=== PATIENT | male | born 2000 | race African-American/Black ===

== ENCOUNTER 2019-05-25 18:04 | Emergency (ER) | payer SELFPAY ==
[~2019-05-25] VITALS: Ht 170.2 cm; Wt 55.8 kg
[2019-05-25] MEDS ORDERED: KETOROLAC 60 MG/2 ML VIAL. IM ONE (18:45)
--- NOTE | 2019-05-25 19:06 | PHYS DOC ---
Past Medical History Past Medical History: No Pertinent History (ERENDIRA MANNING APRN) Past Surgical History: Other Additional Past Surgical Histo: Adenoids (ERENDIRA MANNING APRN) Alcohol Use: Occasionally Drug Use: Marijuana (ERENDIRA MANNING APRN) Smoking: Cigarettes (ERENDIRA BIANCHI DO) Adult General Chief Complaint Chief Complaint: OTHER COMPLAINTS HPI HPI Patient is a 19 year old male that presents stating that yesterday he woke up and is a midsternal chest pain when he takes a deep breath. He states this pain has continued and decided come to the ER. He rates his pain as 5 out of 10 in severity and states it sharp. He has not tried any interventions prior to arrival. (ERENDIRA MANNING APRN) Review of Systems Review of Systems Constitutional: Denies fever or chills [] Eyes: Denies change in visual acuity, redness, or eye pain [] HENT: Denies nasal congestion or sore throat [] Respiratory: Denies cough or shortness of breath [] Cardiovascular: No additional information not addressed in HPI [] GI: Denies abdominal pain, nausea, vomiting, bloody stools or diarrhea [] : Denies dysuria or hematuria [] Musculoskeletal: Denies back pain or joint pain [] Integument: Denies rash or skin lesions [] Neurologic: Denies headache, focal weakness or sensory changes [] Endocrine: Denies polyuria or polydipsia [] Complete systems were reviewed and found to be within normal limits, except as documented in this note. (ERENDIRA MANNING APRN) Current Medications Current Medications Current Medications Medications (Trade) Dose Ordered Sig/Mani Start Time Stop Time Status Last Admin Dose Admin Ketorolac Tromethamine (Toradol Im) 30 mg 1X ONCE 05/25/19 18:45 05/25/19 18:46 DC 05/25/19 18:48 30 MG (ERENDIRA BIANCHI DO) Allergies Allergies Allergies Coded Allergies Type Severity Reaction Last Updated Verified No Known Drug Allergies 06/29/14 No (ERENDIRA BIANCHI DO) Physical Exam Physical Exam Constitutional: Well developed, well nourished, no acute distress, non-toxic appearance. [] HENT: Normocephalic, atraumatic, bilateral external ears normal, oropharynx moist, no oral exudates, nose normal. [] Eyes: PERRLA, EOMI, conjunctiva normal, no discharge. [] Neck: Normal range of motion, no tenderness, supple, no stridor. [] Cardiovascular:Heart rate regular rhythm, no murmur [] Lungs & Thorax: Bilateral breath sounds clear to auscultation [] Abdomen: Bowel sounds normal, soft, no tenderness, no masses, no pulsatile masses. [] Skin: Warm, dry, no erythema, no rash. [] Back: No tenderness, no CVA tenderness. [] Extremities: No tenderness, no cyanosis, no clubbing, ROM intact, no edema. [] Neurologic: Alert and oriented X 3, normal motor function, normal sensory function, no focal deficits noted. [] Psychologic: Affect normal, judgement normal, mood normal. [] (ERENDIRA MANNING APRN) Current Patient Data Vital Signs Vital Signs Date Time Temp Pulse Resp B/P (MAP) Pulse Ox O2 Delivery O2 Flow Rate FiO2 05/25/19 19:49 98.2 70 16 130/91 (104) 99 Room Air 98.2 (ERENDIRA BIANCHI DO) EKG EKG [] (ERENDIRA MANNING APRN) Radiology/Procedures Radiology/Procedures Chest x-ray interpreted by Dr. Bianchi No obvious acute changes.[] [facility] [address] [place] [address] IMAGING REPORT Signed PATIENT: RADHA LUIS ACCOUNT: [id number] : 2000 LOCATION: ER AGE: 19 SEX: M EXAM STATUS: REG ER ORD. PHYSICIAN: ERENDIRA MANNING APRN REASON: chest pain PROCEDURE: CHEST PA & LATERAL Exam: Chest 2 views INDICATION: Chest pain TECHNIQUE: Frontal and lateral views of the chest Comparisons: June 29, 2014 FINDINGS: The cardiomediastinal silhouette and pulmonary vessels are within normal limits. The lung and pleural spaces are clear. IMPRESSION: No acute cardiopulmonary process. Electronically signed by: Reagan Garcia MD (05/25/2019 7:22 PM) [facility] DICTATED and SIGNED BY: REAGAN GARCIA MD DATE: 05/25/191921 (ERENDIRA MANNING APRN) Course & Med Decision Making Course & Med Decision Making Pertinent Labs and Imaging studies reviewed. (See chart for details) Will get x-ray and give Toradol. Imaging is negative for acute changes. Will d/c home. (ERENDIRA MANNING APRN) Dragon Disclaimer Dragon Disclaimer This electronic medical record was generated, in whole or in part, using a voice recognition dictation system. (ERENDIRA MANNING APRN) Departure Departure Impression: Primary Impression: Chest pain Disposition: HOME, SELF-CARE Condition: STABLE Referrals: NO PCP (PCP) Patient Instructions: Chest Pain (Nonspecific), Chest Wall Pain Additional Instructions: Thank you for visiting [facility]. We appreciate you trusting us with your care. If any additional problems come up don't hesitate to return to visit us. Please follow up with your primary care provider so they can plan additional care if needed and know about the problem that you had. If symptoms worsen come back to the Emergency Department. Any concerning symptoms that start such as chest pain, shortness of air, weakness or numbness on one side of the body, running high fevers or any other concerning symptoms return to the ER. The HEART Score for CP Pts HEART Score for Chest Pain: HEART Score for Chest Pain Response (Comments) Value History Slighlty/Non-Suspicious 0 ECG Normal 0 Age < 45 0 Risk Factors 1 or 2 Risk Factors 1 Total 1 Risk Factors: Risk Factors: DM, Current or recent (<one month) smoker, HTN, HLP, family history of CAD, obesity. Risk Scores: Score 0 - 3: 2.5% MACE over next 6 weeks - Discharge Home Score 4 - 6: 20.3% MACE over next 6 weeks - Admit for Clinical Observation Score 7 - 10: 72.7% MACE over next 6 weeks - Early Invasive Strategies (ERENDIRA BIANCHI DO) Attending Signature Attending Signature I have reviewed the PA/PLAYBACK OPERATOR's note and plan of care. I was available for consultation as needed during the patient's visit in the emergency department. I agree with the clinical impression, plan, and disposition. (ERENDIRA BIANCHI DO) Problem Qualifiers Primary Impression: Chest pain Chest pain type: chest pain on breathing Qualified Codes: R07.1 - Chest pain on breathing ERENDIRA MANNING APRN May 25, 2019 19:06 ERENDIRA BIANCHI DO May 27, 2019 01:56
--- NOTE | 2019-05-25 19:25 | RAD ---
Exam: Chest 2 views INDICATION: Chest pain TECHNIQUE: Frontal and lateral views of the chest Comparisons: June 29, 2014 FINDINGS: The cardiomediastinal silhouette and pulmonary vessels are within normal limits. The lung and pleural spaces are clear. IMPRESSION: No acute cardiopulmonary process. Electronically signed by: Reagan Flowers MD (05/25/2019 7:22 PM) [facility]
[2019-05-25 19:49] VITALS: BP 130/91
== END 2019-05-25 19:45 | disposition home or self-care (01) ==
LOC: ER 18:04
DX: R07.1 Chest pain on breathing (principal); F17.210 Nicotine dependence, cigarettes, uncomplicated
CPT/HCPCS: 71046; 96372; 99284; J1885

== ENCOUNTER 2019-11-14 23:11 | Emergency (ER) | payer SELFPAY ==
[~2019-11-14] VITALS: Ht 177.8 cm; Wt 58.0 kg
--- NOTE | 2019-11-14 23:30 | PHYS DOC ---
Past Medical History Past Medical History: No Pertinent History (ZAK SHAH APRN) Past Surgical History: Other Additional Past Surgical Histo: Adenoids (ZAK SHAH APRN) Alcohol Use: Occasionally Drug Use: Marijuana (ZAK SHAH APRN) Adult General Chief Complaint Chief Complaint: SUICDAL IDEATION HPI HPI Patient is a 19 year old Male who presents with attempted to kill himself by breaking a [place] [employer] Beer Bottle on his head. Patient rates his pain 8 out of 10. He denies LOC. He denies overdosing on any pills. He states he did do marijuana tonight. He states he usually drinks a pint a day. He states he is feeling down and depressed because he feels like a failure and he can make nobody happy and his family. He states everybody only sees the bad things he does never sees when he is acting right. He does not know when his last tetanus shot was. (ZAK SHAH APRN) Review of Systems Review of Systems Integument: Several small lacerations to forehead. Denies rash or skin lesions [] All other systems were reviewed and found to be within normal limits, except as documented in this note. (ZAK SHAH APRN) Current Medications Current Medications Current Medications Medications (Trade) Dose Ordered Sig/Mani Start Time Stop Time Status Last Admin Dose Admin Diphtheria/ Tetanus/Acell Pertussis (Boostrix) 0.5 ml ONCE ONCE 11/15/19 00:30 11/15/19 00:31 DC 11/15/19 00:25 0.5 ML Lidocaine HCl (Lidocaine 1% 20ml Vial) 20 ml 1X ONCE 11/14/19 23:45 11/14/19 23:46 DC Ondansetron HCl (Zofran) 4 mg 1X ONCE 11/15/19 00:30 11/15/19 00:31 DC 11/15/19 00:35 4 MG Potassium Chloride (Klor-Con) 40 meq 1X ONCE 11/15/19 00:30 11/15/19 00:31 DC 11/15/19 00:36 40 MEQ Sodium Chloride 1,000 ml @ 1,000 mls/hr 1X ONCE 11/14/19 23:45 11/15/19 00:44 DC 11/15/19 00:28 1,000 MLS/HR (LESTER ASCENCIO DO) Allergies Allergies Allergies Coded Allergies Type Severity Reaction Last Updated Verified No Known Drug Allergies 06/29/14 No (LESTER ASCENCIO DO) Physical Exam Physical Exam Constitutional: Well developed, well nourished, no acute distress, non-toxic appearance. [] HENT: Normocephalic, atraumatic, bilateral external ears normal, oropharynx moist, no oral exudates, nose normal. [] Eyes: PERRLA, EOMI, conjunctiva normal, no discharge. [] Neck: Normal range of motion, no tenderness, supple, no stridor. [] Cardiovascular:Heart rate regular rhythm, no murmur [] Lungs & Thorax: Bilateral breath sounds clear to auscultation [] Abdomen: Bowel sounds normal, soft, no tenderness, no masses, no pulsatile masses. [] Skin: Several small lacerations to forehead. Warm, dry, no erythema, no rash. [] Back: No tenderness, no CVA tenderness. [] Extremities: No tenderness, no cyanosis, no clubbing, ROM intact, no edema. [] Neurologic: Alert and oriented X 3, normal motor function, normal sensory function, no focal deficits noted. [] Psychologic: Affect normal, judgement normal, mood normal. [] (PABLO,ZAK Aldana APRN) Current Patient Data Vital Signs Vital Signs Date Time Temp Pulse Resp B/P (MAP) Pulse Ox O2 Delivery O2 Flow Rate FiO2 11/15/19 01:18 80 20 119/82 (94) 96 Room Air 11/14/19 23:15 98.4 98.4 (LESTER ASCENCIO DO) Lab Values Laboratory Tests Test 11/14/19 23:47 11/15/19 01:15 White Blood Count 7.5 x10^3/uL (4.0-11.0) Red Blood Count 4.91 x10^6/uL (4.30-5.70) Hemoglobin 14.2 g/dL (13.0-17.5) Hematocrit 42.3 % (39.0-53.0) Mean Corpuscular Volume 86 fL (79-100) Mean Corpuscular Hemoglobin 29 pg (25-35) Mean Corpuscular Hemoglobin Concent 34 g/dL (31-37) Red Cell Distribution Width 13.4 % (11.5-14.5) Platelet Count 220 x10^3/uL (140-400) Neutrophils (%) (Auto) 60 % (31-73) Lymphocytes (%) (Auto) 24 % (24-48) Monocytes (%) (Auto) 13 % (0-9) H Eosinophils (%) (Auto) 2 % (0-3) Basophils (%) (Auto) 1 % (0-3) Neutrophils # (Auto) 4.5 x10^3/uL (1.8-7.7) Lymphocytes # (Auto) 1.8 x10^3/uL (1.0-4.8) Monocytes # (Auto) 1.0 x10^3/uL (0.0-1.1) Eosinophils # (Auto) 0.1 x10^3/uL (0.0-0.7) Basophils # (Auto) 0.1 x10^3/uL (0.0-0.2) Sodium Level 143 mmol/L (136-145) Potassium Level 3.2 mmol/L (3.5-5.1) L Chloride Level 103 mmol/L (98-107) Carbon Dioxide Level 31 mmol/L (21-32) Anion Gap 9 (6-14) Blood Urea Nitrogen 4 mg/dL (8-26) L Creatinine 0.8 mg/dL (0.7-1.3) Estimated GFR (Cockcroft-Gault) 147.7 BUN/Creatinine Ratio 5 (6-20) L Glucose Level 106 mg/dL (70-99) H Calcium Level 9.3 mg/dL (8.5-10.1) Total Bilirubin 0.2 mg/dL (0.2-1.0) Aspartate Amino Transferase (AST) 53 U/L (15-37) H Alanine Aminotransferase (ALT) 41 U/L (16-63) Alkaline Phosphatase 68 U/L (46-116) Total Protein 7.8 g/dL (6.4-8.2) Albumin 3.9 g/dL (3.4-5.0) Albumin/Globulin Ratio 1.0 (1.0-1.7) Lipase 76 U/L (73-393) Salicylates Level 4.0 mg/dL (2.8-20.0) Salicylate Last Dose Date Unk Salicylate Last Dose Time Unk Acetaminophen Level < 2 mcg/ml (10-30) L Acetaminophen Last Dose Date Unk Acetaminophen Last Dose Time Unk Ethyl Alcohol Level 237 mg/dL (0-10) H Urine Collection Type Unknown Urine Color Yellow Urine Clarity Clear Urine pH 6.5 Urine Specific [place] 1.010 Urine Protein Negative mg/dL (NEG-TRACE) Urine Glucose (UA) Negative mg/dL (NEG) Urine Ketones (Stick) Negative mg/dL (NEG) Urine Blood Negative (NEG) Urine Nitrite Negative (NEG) Urine Bilirubin Negative (NEG) Urine Urobilinogen Dipstick 0.2 mg/dL (0.2 mg/dL) Urine Leukocyte Esterase Negative (NEG) Urine RBC 1-2 /HPF (0-2) Urine WBC 1-4 /HPF (0-4) Urine Squamous Epithelial Cells Occ /LPF Urine Bacteria 0 /HPF (0-FEW) Urine Hyaline Casts Occasional /HPF Urine Opiates Screen Neg (NEG) Urine Methadone Screen Neg (NEG) Urine Barbiturates Neg (NEG) Urine Phencyclidine Screen Neg (NEG) Urine Amphetamine/Methamphetamine Neg (NEG) Urine Benzodiazepines Screen Neg (NEG) Urine Cocaine Screen Pos (NEG) Urine Cannabinoids Screen Pos (NEG) Urine Ethyl Alcohol Pos (NEG) Laboratory Tests 11/14/19 23:47 Laboratory Tests 11/14/19 23:47 (LESTER ASCENCIO DO) Lab Values Laboratory Tests Test 11/14/19 23:47 White Blood Count 7.5 x10^3/uL (4.0-11.0) Red Blood Count 4.91 x10^6/uL (4.30-5.70) Hemoglobin 14.2 g/dL (13.0-17.5) Hematocrit 42.3 % (39.0-53.0) Mean Corpuscular Volume 86 fL (79-100) Mean Corpuscular Hemoglobin 29 pg (25-35) Mean Corpuscular Hemoglobin Concent 34 g/dL (31-37) Red Cell Distribution Width 13.4 % (11.5-14.5) Platelet Count 220 x10^3/uL (140-400) Neutrophils (%) (Auto) 60 % (31-73) Lymphocytes (%) (Auto) 24 % (24-48) Monocytes (%) (Auto) 13 % (0-9) H Eosinophils (%) (Auto) 2 % (0-3) Basophils (%) (Auto) 1 % (0-3) Neutrophils # (Auto) 4.5 x10^3/uL (1.8-7.7) Lymphocytes # (Auto) 1.8 x10^3/uL (1.0-4.8) Monocytes # (Auto) 1.0 x10^3/uL (0.0-1.1) Eosinophils # (Auto) 0.1 x10^3/uL (0.0-0.7) Basophils # (Auto) 0.1 x10^3/uL (0.0-0.2) Sodium Level 143 mmol/L (136-145) Potassium Level 3.2 mmol/L (3.5-5.1) L Chloride Level 103 mmol/L (98-107) Carbon Dioxide Level 31 mmol/L (21-32) Anion Gap 9 (6-14) Blood Urea Nitrogen 4 mg/dL (8-26) L Creatinine 0.8 mg/dL (0.7-1.3) Estimated GFR (Cockcroft-Gault) 147.7 BUN/Creatinine Ratio 5 (6-20) L Glucose Level 106 mg/dL (70-99) H Calcium Level 9.3 mg/dL (8.5-10.1) Total Bilirubin 0.2 mg/dL (0.2-1.0) Aspartate Amino Transferase (AST) 53 U/L (15-37) H Alanine Aminotransferase (ALT) 41 U/L (16-63) Alkaline Phosphatase 68 U/L (46-116) Total Protein 7.8 g/dL (6.4-8.2) Albumin 3.9 g/dL (3.4-5.0) Albumin/Globulin Ratio 1.0 (1.0-1.7) Lipase 76 U/L (73-393) Salicylates Level 4.0 mg/dL (2.8-20.0) Salicylate Last Dose Date Unk Salicylate Last Dose Time Unk Acetaminophen Level < 2 mcg/ml (10-30) L Acetaminophen Last Dose Date Unk Acetaminophen Last Dose Time Unk Ethyl Alcohol Level 237 mg/dL (0-10) H Laboratory Tests 11/14/19 23:47 Laboratory Tests 11/14/19 23:47 (ZAK SHAH APRN) EKG EKG Sinus Rhythm and no STEMI[] Interpretation Time: [address] Ascencio (ZAK SHAH APRN) Radiology/Procedures Radiology/Procedures [] (ZAK SHAH APRN) Impressions: [facility] [address] [place] [address] IMAGING REPORT Signed PATIENT: RADHA LUIS ACCOUNT: [id number] : 2000 LOCATION: ER AGE: 19 SEX: M EXAM STATUS: REG ER ORD. PHYSICIAN: ZAK SHAH APRN REASON: HIT HEAD WITH A BEAR BOTTLE PROCEDURE: CT HEAD AND CERVICAL SPINE WO CT Head W/O Contrast: History: Hip head with beer bottle Comparison: none Axial images were obtained without contrast. The mcallister and white matter appears normal and symmetrical for the patients age. There is no mass effect, extraaxial fluid collections or hydrocephalus. There is no gross bleed. There is no focal loss of mcallister-white matter distinction to suggest acute ischemia, i.e. stroke. There is a scalp hematoma anteriorly which has some calcification and could be old. Impression: No acute findings. End impression CT C-Spine without contrast: Clinical History: Technique: Axial helical images of the cervical spine were obtained without contrast, axial coronal and sagittal reconstruction was performed. Findings: There is no loss of vertebral body stature. There is no prevertebral soft tissue swelling. The vertebral bodies are well aligned. The C1-C2 relationship is normal. The visualized osseous structures appear normal. Impression: No acute findings. Clinical correlation suggested. End impression CT maxillofacial without contrast History: Pain status post trauma Axial helical images of the face were obtained without contrast. Axial and coronal reconstruction was performed. The nasal septum is mostly midline. The ostiomeatal complexes are narrow but patent. There is a polyp versus mucosal retention cyst in the floor the left maxillary sinus. The visualized osseous structures appear intact. The orbits appear normal. Impression: No acute findings. PQRS Compliance Statement: One or more of the following individualized dose reduction techniques were utilized for this examination: 1. Automated exposure control 2. Adjustment of the mA and/or kV according to patient size 3. Use of iterative reconstruction technique Electronically signed by: Mathew Mckenzie III, MD (11/15/2019 12:12 AM) [id number] DICTATED and SIGNED BY: MATHEW MCKENZIE III, MD DATE: 11/15/19 001 [facility] [address] [place] [address] IMAGING REPORT Signed PATIENT: RADHA LUIS ACCOUNT: [id number] : 2000 LOCATION: ER AGE: 19 SEX: M EXAM STATUS: REG ER ORD. PHYSICIAN: ZAK SHAH APRN REASON: pain to bilateral clavicles, jumped off 3rd floor balcony PROCEDURE: PORTABLE CHEST 1V PORTABLE CHEST 1V Clinical History: Bilateral clavicular pain Technique: AP view of the chest was obtained at 11/14/2019 11:41 PM. Comparison: None. Findings: The cardiomediastinal silhouette is normal. The pulmonary vasculature is normal. The lungs and pleural margins are clear. Impression: No evidence of an acute cardiopulmonary process. Electronically signed by: Mathew Mckenzie III, MD (11/15/2019 12:15 AM) [id number] DICTATED and SIGNED BY: MATHEW MCKENZIE III, MD DATE: 11/15/19 0015 (ZAK SHAH APRN) Course & Med Decision Making Course & Med Decision Making Patient denies LOC, dizziness, visual changes, head ache, abdominal pain or na usea, vomiting, diarrhea, fever. Patient states he has a history of drug abuse, alcoholism, depression. PERRLA. There is glass pieces sticking out of his forehead. He has several small 1 cm lacerations to his forehead. No glass in eyes and no injury to eyes bilaterally. Patient states Wednesday he also attempted to kill himself when he jumped off his brother's third floor balcony. He has bruising to the left eyebrow forehead area of which was his injury from that. He states that he also has upper clavicle bilaterally pain from that incident. He states he is unsure if he passed out at that incident. He still denies he's had any nausea or vomiting or visual changes or numbness and tingling. Full range of motion of his neck. No tenderness to the neck with palpation or his back. He is ambulatory with a steady gait. 0030: I have spoken to PAT team Anna about this patient and she is on her way in to evaluate the patient. Laceration Repair by me: Anesthesia: None needed Location: 1. left forehead above eye brow, 2. left upper forehead, 3. mid forehead Tendon/Joint/Nerves: No injury Foreign body: None detected after copious irrigation with saline, chlorhexidine and extracting many pieces of glass shards out of his forehead and exploration. Technique: [place] contreras- Only superficial laceration (#1) needed dermabond. The other lacerations closed on their own. Complexity: No subcutaneous sutures/mucosal repair/edge excision Post Closure Length: 1) 2cm, 2) 1cm, 3) 1cm Patient's bleeding was easily controlled in the department and there is no indication of anemia. No evidence of compartment syndrome, neurologic injury, vascular injury, open joint, tendon laceration, or foreign body. Patient is appropriate for outpatient follow up. 48 hour wound check. Scar minimization instructions given. (ZAK SHAH APRN) Course & Med Decision Making H&P, labs and imaging reviewed by this provider. Patient medical stable at time of disposition. Patient agreeable for voluntary inpatient psych admission. t (LESTER ASCENCIO DO) Dragon Disclaimer Dragon Disclaimer This electronic medical record was generated, in whole or in part, using a voice recognition dictation system. (ZAK SHAH APRN) Departure Departure Impression: Primary Impression: Suicidal behavior Additional Impressions: Facial laceration Polysubstance abuse Disposition: 05 TRANSFER OTHER Condition: STABLE Referrals: NO PCP (PCP) Problem Qualifiers ZAK SHAH APRN Nov 14, 2019 23:30 LESTER ASCENCIO DO Nov 15, 2019 02:00
[2019-11-14] MEDS ORDERED: IV NORMAL SALINE 1000ML BAG 1,000 ML IV ONE (23:45)
[2019-11-14] MEDS ORDERED: LIDOCAINE 1% Multi-Dose 20 ML VIAL. INJ ONE (23:45)
[2019-11-14 23:54] LABS: BASO # 0.1 x10^3/uL (0.0-0.2); BASO % 1 % (0-3); EOS # 0.1 x10^3/uL (0.0-0.7); EOS % 2 % (0-3); HEMATOCRIT 42.3 % (39.0-53.0); HEMOGLOBIN 14.2 g/dL (13.0-17.5); LYMPH # 1.8 x10^3/uL (1.0-4.8); LYMPH % 24 % (24-48); MEAN CORPUSCULAR HEMOGLOBIN 29 pg (25-35); MEAN CORPUSCULAR HGB CONC 34 g/dL (31-37); MEAN CORPUSCULAR VOLUME 86 fL (79-100); MONO % 13 % (0-9); NEUT # 4.5 x10^3/uL (1.8-7.7); NEUT % 60 % (31-73); PLATELET COUNT 220 x10^3/uL (140-400); RED BLOOD COUNT 4.91 x10^6/uL (4.30-5.70); RED CELL DISTRIBUTION WIDTH 13.4 % (11.5-14.5); WHITE BLOOD COUNT 7.5 x10^3/uL (4.0-11.0)
[2019-11-15 00:04] LABS: CALCIUM 9.3 mg/dL (8.5-10.1); CREATININE 0.8 mg/dL (0.7-1.3); GFR 147.7; POTASSIUM 3.2 mmol/L (3.5-5.1)
[2019-11-15 00:10] LABS: ALBUMIN 3.9 g/dL (3.4-5.0); TOTAL BILIRUBIN 0.2 mg/dL (0.2-1.0); TOTAL PROTEIN 7.8 g/dL (6.4-8.2)
[2019-11-15 00:11] LABS: ACETAMIN < 2 mcg/ml (10-30); ETHANOL 237 mg/dL (0-10)
--- NOTE | 2019-11-15 00:15 | RAD ---
CT Head W/O Contrast: History: Hip head with beer bottle Comparison: none Axial images were obtained without contrast. The mcallister and white matter appears normal and symmetrical for the patients age. There is no mass effect, extraaxial fluid collections or hydrocephalus. There is no gross bleed. There is no focal loss of mcallister-white matter distinction to suggest acute ischemia, i.e. stroke. There is a scalp hematoma anteriorly which has some calcification and could be old. Impression: No acute findings. End impression CT C-Spine without contrast: Clinical History: Technique: Axial helical images of the cervical spine were obtained without contrast, axial coronal and sagittal reconstruction was performed. Findings: There is no loss of vertebral body stature. There is no prevertebral soft tissue swelling. The vertebral bodies are well aligned. The C1-C2 relationship is normal. The visualized osseous structures appear normal. Impression: No acute findings. Clinical correlation suggested. End impression CT maxillofacial without contrast History: Pain status post trauma Axial helical images of the face were obtained without contrast. Axial and coronal reconstruction was performed. The nasal septum is mostly midline. The ostiomeatal complexes are narrow but patent. There is a polyp versus mucosal retention cyst in the floor the left maxillary sinus. The visualized osseous structures appear intact. The orbits appear normal. Impression: No acute findings. PQRS Compliance Statement: One or more of the following individualized dose reduction techniques were utilized for this examination: 1. Automated exposure control 2. Adjustment of the mA and/or kV according to patient size 3. Use of iterative reconstruction technique Electronically signed by: Willis Duque III, MD (11/15/2019 12:12 AM) [id number]
--- NOTE | 2019-11-15 00:18 | RAD ---
PORTABLE CHEST 1V Clinical History: Bilateral clavicular pain Technique: AP view of the chest was obtained at 11/14/2019 11:41 PM. Comparison: None. Findings: The cardiomediastinal silhouette is normal. The pulmonary vasculature is normal. The lungs and pleural margins are clear. Impression: No evidence of an acute cardiopulmonary process. Electronically signed by: Willis Duque III, MD (11/15/2019 12:15 AM) [id number]
[2019-11-15] MEDS ORDERED: DIPHTH,PERTUSS(ACELL),TET TOX 0.5 ML DISP.SYRIN. VAX IM ONE (00:30)
[2019-11-15] MEDS ORDERED: ONDANSETRON PF 4 MG/2 ML VIAL. IVP ONE (00:30)
[2019-11-15] MEDS ORDERED: POTASSIUM CHLORIDE 20 MEQ TABLET.ER. PO ONE (00:30)
[2019-11-15 01:24] LABS: BILIRUBIN,URINE NEGATIVE (NEG); CLARITY,URINE CLEAR; COLOR,URINE YELLOW; NITRITE,URINE NEGATIVE (NEG); PH,URINE 6.5; PROTEIN,URINE NEGATIVE (NEG-TRACE); UROBILINOGEN,URINE 0.2 mg/dL (0.2 mg/dL)
[2019-11-15 01:30] LABS: AMPHETAMINE/METHAMPHETAMINE NEG (NEG); BARBITURATES NEG (NEG); BENZODIAZEPINES NEG (NEG); CANNABINOIDS POS (NEG); COCAINE POS (NEG); METHADONE NEG (NEG); OPIATES NEG (NEG); PHENCYCLIDINE NEG (NEG)
[2019-11-15 01:32] LABS: BACTERIA,URINE 0 /HPF (0-FEW); HYALINE CASTS, URINE OCCASIONAL /HPF; SQUAMOUS EPITHELIAL CELL,UR OCC /LPF
--- NOTE | 2019-11-15 05:15 | EKG ---
[facility] [address] [place] [address] Test Date: 2019-11-15 Test Time: 00:07:15 Pat Name: RADHA LUIS Department: Room: Gender: M [employer] Operator: : 2000 Requested By: ZAK SHAH Order Number: [id number] Reading MD: Measurements Intervals [place] Rate: 68 P: 62 [place]: 162 QRS: 72 QRSD: 92 T: 47 QT: 378 QTc: 406 Interpretive Statements SINUS RHYTHM QRS(T) CONTOUR ABNORMALITY CONSIDER ANTEROLATERAL MYOCARDIAL DAMAGE CONSIDER INFERIOR MYOCARDIAL DAMAGE POSSIBLY ABNORMAL ECG RI6.01 No previous ECG available for comparison
[2019-11-15] MEDS ORDERED: ACETAMINOPHEN 325 MG TABLET. PO ONE (07:30)
[2019-11-15 09:59] VITALS: BP 114/70
== END 2019-11-15 10:00 | disposition short-term general hospital (02) ==
LOC: ER 23:11
DX: S01.82XA Laceration with foreign body of other part of head, initial encounter (principal); S01.122A Laceration with foreign body of left eyelid and periocular area, initial encounter; R45.851 Suicidal ideations; F12.90 Cannabis use, unspecified, uncomplicated; Z98.890 Other specified postprocedural states; X83.8XXA Intentional self-harm by other specified means, initial encounter; Y93.89 Activity, other specified; Y92.89 Other specified places as the place of occurrence of the external cause; Y99.8 Other external cause status
CPT/HCPCS: 12053; 36415; 70450; 70486; 71045; 72125; 80053; 80307; 80329; 81001; 83690; 85025; 90471; 90715; 93005; 96374; 99285; G0480; J2405; J7030

== ENCOUNTER 2021-01-13 14:26 | Emergency (ER) | payer SELFPAY ==
[~2021-01-13] VITALS: Ht 175.3 cm; Wt 56.0 kg
[2021-01-13 14:46] VITALS: BP 125/79
[2021-01-13] MEDS ORDERED: HYDROcodone/APAP 5/325MG 1 TAB TABLET PO ONE (15:00)
--- NOTE | 2021-01-13 15:06 | ED.ADGEN ---
Past Medical History Past Medical History: No Pertinent History, Depression Past Surgical History: Tonsillectomy, Other Additional Past Surgical Histo: Adenoids Smoking Status: Current Some Day Smoker Alcohol Use: Occasionally Drug Use: Marijuana General Adult EDM: Chief Complaint: FOOT INJURY PAIN HPI: HPI: Patient is a 20 year old AA male who presents emergency department complaints of lateral right foot pain, redness, and swelling after twisting his foot while dancing with his brother last night. He denies any numbness, tingling, or weakness in the affected extremity. Patient denies any ankle pain. He reports pain to the lateral aspect of his foot that is worse with palpation knee, weightbearing, and movement. He currently rates the pain a 6 out of 10 on pain scale. He denies any alleviating factors. Review of Systems: Review of Systems: Complete ROS is negative unless otherwise noted in HPI. Current Medications: Current Medications Medications (Trade) Dose Ordered Sig/Mani Start Time Stop Time Status Last Admin Dose Admin Acetaminophen/ Hydrocodone Bitart (Lortab 5/325) 1 tab 1X ONCE 01/13/21 15:00 01/13/21 15:01 DC Allergies: Allergies: Allergies Coded Allergies Type Severity Reaction Last Updated Verified No Known Drug Allergies 06/29/14 No Physical Exam: PE: See Above Constitutional: Well developed, well nourished, no acute distress, non-toxic appearance. [] HENT: Normocephalic, atraumatic, bilateral external ears normal, nose normal. [] Eyes: PERRLA, EOMI, conjunctiva normal, no discharge. [] Neck: Normal range of motion, no stridor. [] Cardiovascular:Heart rate regular rhythm Lungs & Thorax: Respirations even and unlabored, no retractions, no respiratory distress Skin: Warm, dry, no erythema, no rash. [] Extremities: RLE: Right ankle is nontender to palpation, no crepitus, no obvious deformity, range of motion intact; right foot has mid lateral tenderness to palpation without crepitus or obvious deformity, erythema at the tender site, no cyanosis, ROM intact, 1+ edema Neurologic: Alert and oriented X 3, normal motor, normal sensory, no focal deficits noted. [] Psychologic: Affect normal, judgement normal, mood normal. [] Current Patient Data: Vital Signs: Vital Signs Date Time Temp Pulse Resp B/P (MAP) Pulse Ox O2 Delivery O2 Flow Rate FiO2 01/13/21 14:46 98.1 92 18 125/79 (94) 97 Room Air 98.1 EKG: EKG: [] Heart Score: C/O Chest Pain: No Risk Scores: Score 0 - 3: 2.5% MACE over next 6 weeks - Discharge Home Score 4 - 6: 20.3% MACE over next 6 weeks - Admit for Clinical Observation Score 7 - 10: 72.7% MACE over next 6 weeks - Early Invasive Strategies Radiology/Procedures: Radiology/Procedures: PROCEDURE: FOOT RIGHT 3V Three-view right foot HISTORY: Right foot pain after injury AP lateral oblique views There is mild bunion deformity. The visualized osseous structures otherwise appear normal. IMPRESSION: No acute findings Electronically signed by: Willis Duque III, MD (01/13/2021 3:25 PM) [facility] X-ray of the patient's foot was reviewed by myself and Dr. Sutton me believe there is a nondisplaced fracture at the base of the fifth metatarsal, will treat as such. I advised radiology of our interpretation, the radiologist agrees and will make an addendum to his initial reading. [] Course & Med Decision Making: Course & Med Decision Making Pertinent Labs and Imaging studies reviewed. (See chart for details) [] Trent Disclaimer: Trent Disclaimer: This electronic medical record was generated, in whole or in part, using a voice recognition dictation system. Departure Departure Impression: Primary Impression: Fracture of fifth metatarsal bone of right foot with routine healing Disposition: 01 DC HOME SELF CARE/HOMELESS Condition: STABLE Referrals: NO PCP (PCP) ERENDIRA NICHOLAS DO Patient Instructions: Metatarsal Fracture, Undisplaced Additional Instructions: Fill prescription(s) and use as directed. Recommend application of ice, elevation, and rest of affected extremity. Wear the postop shoe that was placed and use the crutches provided until follow up appointment with Dr. Nicholas Return to the ER if your symptoms worsen. Scripts Hydrocodone Bit/Acetaminophen (HYDROCODONE-APAP 5-325 ) 1 Tab Tablet 1 TAB PO PRN Q6HRS PRN for PAIN for 3 Days, #12 TAB 0 Refills Prov: CECIL HANSEN TABLE LEVER OPERATOR 01/13/21 Problem Qualifiers Primary Impression: Fracture of fifth metatarsal bone of right foot with routine healing Fracture type: closed Fracture alignment: nondisplaced Qualified Codes: S92.354D - Nondisplaced fracture of fifth metatarsal bone, right foot, subsequent encounter for fracture with routine healing CECIL HANSEN TABLE LEVER OPERATOR Jan 13, 2021 15:06
--- NOTE | 2021-01-13 15:28 | RAD ---
ADDENDUM #1 Addendum: There is a subtle nondisplaced fracture of the base of the fifth metatarsal. Electronically signed by: Willis Duque III, MD (01/13/2021 3:37 PM) [facility] Three-view right foot HISTORY: Right foot pain after injury AP lateral oblique views There is mild bunion deformity. The visualized osseous structures otherwise appear normal. IMPRESSION: No acute findings Electronically signed by: Willis Duque III, MD (01/13/2021 3:25 PM) [facility]
[2021-01-13] MEDS ORDERED: HYDR-2761 PO (15:39)
== END 2021-01-13 15:58 | disposition home or self-care (01) ==
LOC: ER 14:26
DX: S92.351A Displaced fracture of fifth metatarsal bone, right foot, initial encounter for closed fracture (principal); R60.0 Localized edema; F32.9 Major depressive disorder, single episode, unspecified; F12.90 Cannabis use, unspecified, uncomplicated; Z90.89 Acquired absence of other organs; Z98.890 Other specified postprocedural states; Z87.891 Personal history of nicotine dependence; X58.XXXA Exposure to other specified factors, initial encounter; Y93.89 Activity, other specified; Y92.89 Other specified places as the place of occurrence of the external cause; Y99.8 Other external cause status
CPT/HCPCS: 73630; 99283